=== PATIENT | male | born 1940 | race Caucasian/White ===

== ENCOUNTER → 2016-10-01 | Outpatient (REF) ==
[~2016-10-01] MED LIST: ASPIRIN 32325 MG/TAB PO; CYANOCOBALAMIN IM; DICLOFENAC; EPA FISH OIL1000 MG PO; IMDUR 30MG30 MG/TAB PO; LYRICA; MEVACOR; MEVACOR40 MG PO; MORP4; MVI; Morphine; NORVASC 10MG10 MG PO; OMEGA 3; PRILOTC PO; PRINZIDE 12.5 M1 TA1; SINGULAIR 110 MG/TAB PO; SYNTHROID0.075 MG/T PO; THERAGRAN1 TA1 PO; TYLENOL 500MG500 MG PO; XARELTO15 MG PO; ZESTRIL; ZESTRIL 20MG TA20 MG PO
[2016-10-01 11:39] LABS: PSA-TOTAL 5.49 ng/mL (0-4); THYROID STIMULATING HORMONE 0.912 uIU/mL (0.465-4.680)
== END ==
LOC: ZLAB.WCH 10:55
PROVIDERS: Internal Medicine
DX: Z01.89 Encounter for other specified special examinations (principal)
CPT/HCPCS: G0103

== ENCOUNTER → 2017-11-15 | Outpatient (REF) ==
[2017-11-15 17:53] LABS: PSA-TOTAL 10.1 ng/mL (0-4)
== END ==
LOC: ZLAB.WCH 16:04
PROVIDERS: Internal Medicine
DX: Z01.89 Encounter for other specified special examinations (principal)
CPT/HCPCS: G0103

== ENCOUNTER 2018-11-15 13:26 | Emergency (ER) | payer MEDICARE, BC ==
[~2018-11-15] VITALS: Ht 175.3 cm; Wt 154.5 kg
[2018-11-15 13:33] VITALS: TEMP 98.4
[2018-11-15 14:26] LABS: BASO # 0.1 (0.0-0.2); BASO % 0.9 % (0.0-2.0); EOS # 0.4 (0.0-0.7); EOS % 4.2 % (0-4.0); GRAN # 5.8 (1.4-6.5); GRAN % 66.1 % (42.2-75.2); HEMOGLOBIN 10.4 g/dl (13.5-18.0); LYMPH # 1.4 (1.2-3.4); LYMPH % 15.7 % (20.0-51.0); MEAN CELL VOLUME 95 fl (80.0-100.0); MEAN CORPUSCULAR HEMOGLOBIN 30 pg (27.0-31.0); MEAN CORPUSCULAR HGB CONC 31 g/dl (33.0-37.0); MEAN PLATELET VOLUME 11.2 fl (7.4-10.4); MONO # 1.1 (0.1-0.6); MONO % 12.8 % (1.7-9.3); PLATELET COUNT 206 K/mm3 (130-400); RED BLOOD COUNT 3.49 M/mm3 (4.20-5.60); REDCELL DISTRIBUTION WIDTH-CV 12.6 % (11.5-14.5)
[2018-11-15 14:27] LABS: HEMATOCRIT 33.3 % (42.0-52.0)
[2018-11-15 14:30] LABS: INR 2.6 (0.8-3.0); PROTHROMBIN TIME 31.2 SECONDS (9.7-12.8)
[2018-11-15 14:32] LABS: PARTIAL THROMBOPLASTIN TIME 46.2 SECONDS (26.0-37.0)
[2018-11-15 14:40] LABS: ALANINE AMINOTRANSFERASE < 6 U/L (21-72); ALBUMIN 4.1 gm/dL (3.5-5.0); ALKALINE PHOSPHATASE 61 U/L (50-136); ANION GAP 9 mmol/L (7-16); AST,SGOT 21 U/L (15-37); BILIRUBIN,TOTAL 0.4 mg/dL (0.0-1.0); BLOOD UREA NITROGEN 35 mg/dL (9-20); CALCIUM 9.3 mg/dL (8.4-10.2); CARBON DIOXIDE 25 mmol/L (22-30); CHLORIDE 106 mmol/L (98-107); CREATININE, serum 1.79 (0.66-1.25); GLUCOSE 103 mg/dL (74-106); MAGNESIUM 1.7 mg/dL (1.6-2.3); PHOSPHOROUS 2.5 mg/dL (2.5-4.5); SODIUM 140 mmol/L (137-145); TOTAL PROTEIN 7.3 gm/dL (6.4-8.2)
[2018-11-15] MEDS ORDERED: ASPIRIN E.C. 8181 MG PO (14:51)
[2018-11-15] MEDS ORDERED: ZESTORETIC 25 M1 TAB PO (14:53)
[2018-11-15] MEDS ORDERED: COUMADIN 1MG1 MG/TAB PO (14:56)
[2018-11-15 14:58] LABS: TROPONIN-I < 0.012 ng/mL (0.000-0.035)
[2018-11-15 16:23] VITALS: BP 136/64; PULSE 63
== END 2018-11-15 16:23 | disposition short-term general hospital (02) ==
LOC: COL.ER 13:26
PROVIDERS: Emergency Medicine
DX: I50.9 Heart failure, unspecified (principal); I13.0 Hypertensive heart and chronic kidney disease with heart failure and stage 1 through stage 4 chronic kidney disease, or unspecified chronic kidney disease; N18.9 Chronic kidney disease, unspecified; E78.5 Hyperlipidemia, unspecified; Z79.82 Long term (current) use of aspirin; Z79.01 Long term (current) use of anticoagulants; Z86.711 Personal history of pulmonary embolism
CPT/HCPCS: J1940

== ENCOUNTER 2021-08-12 09:09 | Inpatient (IN) | payer MEDICARE, BC ==
[~2021-08-12] VITALS: Ht 172.7 cm; Wt 119.0 kg
[~2021-08-12 09:09] MED LIST changes: +ASPIRIN E.C. 8181 MG PO; +COUMADIN 1MG1 MG/TAB PO; +ZESTORETIC 25 M1 TAB PO
[2021-08-12 09:32] LABS: BASO # 0.1 K/mm3 (0.0-0.2); BASO % 0.7 % (0.0-2.0); EOS % 0.4 % (0.0-4.0); GRAN # 6.5 K/mm3 (1.4-6.5); GRAN % 80.2 % (42.2-75.2); HEMATOCRIT 37.5 % (42.0-52.0); HEMOGLOBIN 12.1 g/dl (13.5-18.0); LYMPH # 0.9 K/mm3 (1.2-3.4); LYMPH % 11.2 % (20.0-51.0); MEAN CELL VOLUME 94 fl (80.0-100.0); MEAN CORPUSCULAR HEMOGLOBIN 30 pg (27-31); MEAN CORPUSCULAR HGB CONC 32 g/dl (33.0-37.0); MEAN PLATELET VOLUME 11.5 fl (7.4-10.4); MONO # 0.6 K/mm3 (0.1-0.6); MONO % 7.1 % (1.7-9.3); PLATELET COUNT 185 K/mm3 (130-400); RED BLOOD COUNT 3.99 M/mm3 (4.20-5.60); REDCELL DISTRIBUTION WIDTH-CV 12.3 % (11.5-14.5)
[2021-08-12 09:40] LABS: INR 3.3 (0.8-3.0)
[2021-08-12 09:43] LABS: PARTIAL THROMBOPLASTIN TIME 51.1 SECONDS (26.0-37.0)
[2021-08-12 10:06] LABS: ALBUMIN 3.7 gm/dL (3.4-4.8); BILIRUBIN,TOTAL 0.7 mg/dL (0.2-1.2); CALCIUM 9.8 mg/dL (8.4-10.2); CREATININE, serum 1.73 mg/dL (0.72-1.25); TOTAL PROTEIN 7.3 gm/dL (6.2-8.1)
[2021-08-12 10:13] LABS: TROPONIN-I 0.015 ng/mL (0.00-0.033)
[2021-08-12] MEDS ORDERED: COUMADIN 3MG3 MG/TAB (11:12)
[2021-08-12] MEDS ORDERED: COUMADIN 2MG2 MG/TAB (11:12)
[2021-08-12] MEDS ORDERED: NEOMYCIN AND PO20 ML (11:14)
[2021-08-12 12:43] VITALS: BP 138/87; PULSE 72; TEMP 97.9
[2021-08-12] MEDS ORDERED: MAXITROL OPHTH D5 ML OS (14:58)
[2021-08-12 15:23] VITALS: BP 178/69; PULSE 57; TEMP 98.2
[2021-08-12 20:41] VITALS: BP 163/67; PULSE 66; TEMP 97.9
[2021-08-12 23:50] VITALS: BP 173/58; PULSE 60; TEMP 98.5
[2021-08-13] VITALS (11 sets, daily range): BP systolic 128–180; BP diastolic 53–92; PULSE 68–142; TEMP 98.2–98.3
[2021-08-13 07:09] LABS: BASO % 0.1 % (0.0-2.0); GRAN # 12.6 K/mm3 (1.4-6.5); GRAN % 85.9 % (42.2-75.2); HEMATOCRIT 37.6 % (42.0-52.0); HEMOGLOBIN 11.7 g/dl (13.5-18.0); LYMPH # 0.8 K/mm3 (1.2-3.4); LYMPH % 5.5 % (20.0-51.0); MEAN CELL VOLUME 96 fl (80.0-100.0); MEAN CORPUSCULAR HEMOGLOBIN 30 pg (27-31); MEAN CORPUSCULAR HGB CONC 31 g/dl (33.0-37.0); MEAN PLATELET VOLUME 11.8 fl (7.4-10.4); MONO # 1.1 K/mm3 (0.1-0.6); MONO % 7.7 % (1.7-9.3); PLATELET COUNT 190 K/mm3 (130-400); RED BLOOD COUNT 3.91 M/mm3 (4.20-5.60); REDCELL DISTRIBUTION WIDTH-CV 12.6 % (11.5-14.5)
[2021-08-13 07:15] LABS: PROTHROMBIN TIME 35.3 SECONDS (9.7-12.8)
[2021-08-13 07:24] LABS: ALBUMIN 3.5 gm/dL (3.4-4.8); CALCIUM 9.3 mg/dL (8.4-10.2); CREATININE, serum 2.14 mg/dL (0.72-1.25); MAGNESIUM 1.4 mg/dL (1.6-2.6); PHOSPHOROUS 4.5 mg/dL (2.3-4.7); POTASSIUM 5.1 mmol/L (3.5-4.5)
[2021-08-13 07:31] LABS: TROPONIN-I 0.021 ng/mL (0.00-0.033)
[2021-08-14] VITALS (21 sets, daily range): BP systolic 102–176; BP diastolic 54–90; PULSE 65–85; TEMP 97.5–98.2
[2021-08-14 07:28] LABS: HEMATOCRIT 42.6 % (42.0-52.0); HEMOGLOBIN 13.5 g/dl (13.5-18.0); MEAN CELL VOLUME 96 fl (80.0-100.0); MEAN CORPUSCULAR HEMOGLOBIN 30 pg (27-31); MEAN CORPUSCULAR HGB CONC 32 g/dl (33.0-37.0); MEAN PLATELET VOLUME 11.9 fl (7.4-10.4); PLATELET COUNT 210 K/mm3 (130-400); RED BLOOD COUNT 4.44 M/mm3 (4.20-5.60); REDCELL DISTRIBUTION WIDTH-CV 12.5 % (11.5-14.5)
[2021-08-14 08:00] LABS: INR 2.5 (0.8-3.0); PROTHROMBIN TIME 29.1 SECONDS (9.7-12.8)
[2021-08-14 08:02] LABS: ALBUMIN 3.9 gm/dL (3.4-4.8); CALCIUM 9.9 mg/dL (8.4-10.2); CREATININE, serum 2.28 mg/dL (0.72-1.25); MAGNESIUM 1.8 mg/dL (1.6-2.6); PHOSPHOROUS 3.9 mg/dL (2.3-4.7); POTASSIUM 5.3 mmol/L (3.5-4.5)
[2021-08-14 08:31] LABS: BAND 2 % (0-10); LYMPHOCYTE 2 % (20.0-51.0); NEUTROPHILS 92 % (42.0-75.2); NUCLEATED RED BLOOD CELL 1 (0-6); PLATELET ESTIMATE NORMAL (NORMAL); POLYCHROMASIA 1+
[2021-08-14] MEDS ORDERED: CILOXAN .3% EY2.5 ML OP (11:22)
[2021-08-15] VITALS (23 sets, daily range): BP systolic 106–157; BP diastolic 47–91; PULSE 73–88; TEMP 97.7–98.4
[2021-08-15 07:31] LABS: HEMATOCRIT 42.8 % (42.0-52.0); HEMOGLOBIN 13.9 g/dl (13.5-18.0); MEAN CELL VOLUME 93 fl (80.0-100.0); MEAN CORPUSCULAR HEMOGLOBIN 30 pg (27-31); MEAN CORPUSCULAR HGB CONC 33 g/dl (33.0-37.0); MEAN PLATELET VOLUME 12.2 fl (7.4-10.4); PLATELET COUNT 234 K/mm3 (130-400); RED BLOOD COUNT 4.58 M/mm3 (4.20-5.60); REDCELL DISTRIBUTION WIDTH-CV 12.4 % (11.5-14.5)
[2021-08-15 07:39] LABS: INR 3.1 (0.8-3.0); PROTHROMBIN TIME 35.7 SECONDS (9.7-12.8)
[2021-08-15 07:57] LABS: ALBUMIN 3.5 gm/dL (3.4-4.8); CALCIUM 9.5 mg/dL (8.4-10.2); CREATININE, serum 2.45 mg/dL (0.72-1.25); PHOSPHOROUS 4.3 mg/dL (2.3-4.7)
[2021-08-15 08:02] LABS: BAND 1 % (0-10); LYMPHOCYTE 5 % (20.0-51.0); NEUTROPHILS 83 % (42.0-75.2); PLATELET ESTIMATE NORMAL (NORMAL)
[2021-08-16] VITALS (13 sets, daily range): BP systolic 109–135; BP diastolic 35–79; PULSE 65–89; TEMP 98.2
[2021-08-16 12:24] LABS: HEMATOCRIT 40.1 % (42.0-52.0); HEMOGLOBIN 13.1 g/dl (13.5-18.0); MEAN CELL VOLUME 94 fl (80.0-100.0); MEAN CORPUSCULAR HEMOGLOBIN 31 pg (27-31); MEAN CORPUSCULAR HGB CONC 33 g/dl (33.0-37.0); MEAN PLATELET VOLUME 12.3 fl (7.4-10.4); PLATELET COUNT 211 K/mm3 (130-400); RED BLOOD COUNT 4.29 M/mm3 (4.20-5.60); REDCELL DISTRIBUTION WIDTH-CV 12.5 % (11.5-14.5)
[2021-08-16 12:34] LABS: INR 4.4 (0.8-3.0)
[2021-08-16 12:42] LABS: ALBUMIN 3.2 gm/dL (3.4-4.8); CALCIUM 9.2 mg/dL (8.4-10.2); CREATININE, serum 3.22 mg/dL (0.72-1.25); PHOSPHOROUS 3.9 mg/dL (2.3-4.7); POTASSIUM 4.8 mmol/L (3.5-4.5)
[2021-08-16 12:53] LABS: PROTHROMBIN TIME 51.8 SECONDS (9.7-12.8)
[2021-08-16 13:03] LABS: EOSINOPHIL 1 % (0-4); LYMPHOCYTE 4 % (20.0-51.0); NEUTROPHILS 80 % (42.0-75.2)
[2021-08-16 13:04] LABS: ANISOCYTOSIS 3+; PLATELET ESTIMATE NORMAL (NORMAL)
[2021-08-16] MEDS ORDERED: CORDARONE200 MG/TAB PO (14:03)
[2021-08-16 15:56] LABS: MUCOUS Present (NOT PRESENT); PH 5 (5-8); SQUAMOUS EPITHELIAL None Seen /hpf (0-10); URINE APPEARANCE Clear (CLEAR/HAZY); URINE BACTERIA Rare /hpf (NONE SEEN); URINE BILIRUBIN Negative (NEGATIVE); URINE BLOOD Negative (NEGATIVE); URINE COLOR Yellow (YELLOW); URINE GLUCOSE Negative (NEGATIVE); URINE KETONE Negative (NEGATIVE); URINE LEUKOCYTE ESTERASE Negative (NEGATIVE); URINE NITRATE Negative (NEGATIVE); URINE PROTEIN(semi-quant) Negative (NEGATIVE); URINE RBC 0-2 /hpf (0-2); URINE UROBILINOGEN Negative (NEGATIVE)
[2021-08-16 16:15] LABS: COLLECTION METHOD CLEAN CATCH
== END 2021-08-16 18:42 | disposition short-term general hospital (02) | DRG 291 ==
LOC: COL.ER 09:09 → MEDICAL 10:49
PROVIDERS: Emergency Medicine; Physician Assistant; Registered Nurse; ADMIT Internal Medicine
DX: I13.0 Hypertensive heart and chronic kidney disease with heart failure and stage 1 through stage 4 chronic kidney disease, or unspecified chronic kidney disease (principal); J96.01 Acute respiratory failure with hypoxia; J45.901 Unspecified asthma with (acute) exacerbation; N17.9 Acute kidney failure, unspecified; I48.92 Unspecified atrial flutter; L03.213 Periorbital cellulitis; I16.0 Hypertensive urgency; Z66 Do not resuscitate; E03.9 Hypothyroidism, unspecified; I71.4 Abdominal aortic aneurysm, without rupture; G47.33 Obstructive sleep apnea (adult) (pediatric); Z20.822 Contact with and (suspected) exposure to COVID-19; N18.9 Chronic kidney disease, unspecified; E87.5 Hyperkalemia; S05.02XA Injury of conjunctiva and corneal abrasion without foreign body, left eye, initial encounter; G89.29 Other chronic pain; M54.9 Dorsalgia, unspecified; D72.829 Elevated white blood cell count, unspecified; T38.0X5A Adverse effect of glucocorticoids and synthetic analogues, initial encounter; Y92.238 Other place in hospital as the place of occurrence of the external cause; I48.0 Paroxysmal atrial fibrillation; E78.5 Hyperlipidemia, unspecified; I25.10 Atherosclerotic heart disease of native coronary artery without angina pectoris; I50.9 Heart failure, unspecified; M19.90 Unspecified osteoarthritis, unspecified site; I95.9 Hypotension, unspecified; Z88.6 Allergy status to analgesic agent; Z86.718 Personal history of other venous thrombosis and embolism; Z79.01 Long term (current) use of anticoagulants; Z85.46 Personal history of malignant neoplasm of prostate; Z79.890 Hormone replacement therapy; Z86.711 Personal history of pulmonary embolism; Z95.1 Presence of aortocoronary bypass graft; Z88.2 Allergy status to sulfonamides; Z87.891 Personal history of nicotine dependence; Z23 Encounter for immunization
CPT/HCPCS: 99233-AI; 99239; A9500; G0378; J0133; J0692; J1940; J2405; J2785; J2920; J2930; J3010; J3475; J7030; J7050; J7512